=== PATIENT | female | born 1950 | race African-American/Black ===

== ENCOUNTER → 2017-07-28 | Outpatient (CLI) | payer OTHER | LOC: MRI 14:49 | DX: M47.26 Other spondylosis with radiculopathy, lumbar region (principal) ==

== ENCOUNTER → 2019-01-11 | Outpatient (CLI) | payer OTHER | LOC: RAD 03:07 | DX: Z12.31 Encounter for screening mammogram for malignant neoplasm of breast (principal) ==

== ENCOUNTER → 2019-01-13 | Outpatient (CLI) | payer OTHER | LOC: ULTRA 03:17 | DX: N60.01 Solitary cyst of right breast (principal) ==

== ENCOUNTER → 2019-05-24 | Outpatient (CLI) | payer OTHER ==
[~2019-05-24] VITALS: Ht 165.1 cm; Wt 74.4 kg
[~2019-05-24] MED LIST: AMLODIPINE BESY10 MG PO; CALCIUM 600 +1 EAC1 PO; MAGOX 400400 MG PO; POTASSIUM GLUCO99 M2 PO; VITAMINC500 PO; WOMEN'S DAILY1 EACH PO
--- NOTE | ~2019-05-24 | P ---
[facility] [place] [address] [address] PROCEDURE REPORT Name: YAZAN NELSON Room #: REG KEERTHI Kim#: [id number] Admission: 05/24/19 Attend Phys: Krzysztof Taylor Discharge: Date of : 46 Report #: [id number] THIS REPORT FOR: //name// CC: Gold Degroot DATE OF SERVICE: 05/24/2019 PROCEDURE PERFORMED: Colonoscopy with biopsies. HISTORY OF PRESENT ILLNESS: The patient is a 68-year-old female with a history of colon polyps 5 years ago. Also, family history of colon cancer in her brother. She is here for 5-year followup. She also has had weight loss of approximately 40 pounds in the last year; however, she has been under increased stress. Unfortunately, her last June and she had to move. She states her appetite has been fair. She denies any nausea or vomiting. No heartburn symptoms. No dysphagia. Bowel movements have been normal. Denies any blood in her stools or diarrhea. Plan is for colonoscopy. DESCRIPTION OF PROCEDURE: The risks and benefits of the procedure were explained to the patient, those risks including but not limited to bleeding, perforation and the risk of sedation. She understood these risks and gave informed consent. Sedation was given using propofol per anesthesia. Next, a digital rectal exam was initially performed, which was normal. Next, using a standard Olympus colonoscope, the scope was placed in the patient's anus and advanced under direct vision to the cecum. The overall prep was excellent. The cecum and ileocecal valve were normal in appearance. Ascending colon was normal and transverse colon were normal. In the descending colon, two sessile polyps were noted ranging from 4-5 mm, both removed with cold forceps. In the sigmoid colon, multiple small diverticula were noted. Also noted was a 4 mm sessile polyp also removed with cold forceps. The rectal mucosa was normal. On retroflexion, no abnormalities were noted. The scope was then withdrawn and the procedure terminated. The patient tolerated the procedure well. IMPRESSION: 1. Small colonic polyps. 2. Sigmoid diverticulosis. 3. Otherwise, normal colonoscopy. RECOMMENDATIONS: 1. Await biopsy results. 2. Repeat colonoscopy in 5 years. 3. If weight loss continues, consider further workup including possible CT scan of the abdomen and pelvis. [address] [address] PROCEDURE REPORT Name: AMANDACLEO DENIKHIL FOSTER Room #: REG KEERTHI Alvarez#: [id number] Admission: 05/24/19 Attend Phys: Krzysztof Taylor Discharge: Date of : 46 Report #: [id number] Thank you for allowing me to participate in her care. By: 0921 1435 Krzysztof Davis MD /nt
--- NOTE | 2019-05-25 19:06 | PATH ---
[facility] [address] [address] PATHOLOGY RPT PROCEDURE Name: KRYSTEN NELSON CRISTIAN Room #: REG KEERTHI Corbin.#: [id number] Admission: 05/24/19 Date of : 46 Discharge: Report #: [id number] Path Case #: [id number] [facility] Accession Number: [id number] . 01 Material submitted: . PART A: colon - BX OF POLYP DESCENDING COLON X2. Modifiers: descending PART B: colon - BX OF POLYP AT SIGMOID COLON. Modifiers: sigmoid . 01 Clinical history: . History of polyps, diverticulosis, colon polyps . 02 Diagnosis: A. Colon, descending, biopsy: - Adenomatous polyp, one. - Hyperplastic polyps, approximately five fragments. . B. Colon, sigmoid, biopsy: - Hyperplastic polyps, three. . (FRIDA:moni; 05/25/2019) QLM/05/25/2019 . 02 Electronically signed: . Ryan Barksdale MD, Pathologist NPI- [id number] . 01 Gross description: . A. The specimen is received in formalin, labeled "Krysten Nelson, BX of polyp descending colon x2", are few irregular fragments of rosas soft tissue measuring 0.7 x 0.4 x 0.2 cm in aggregate. Entirely submitted in A1. . B. The specimen is received in formalin, labeled "Krysten Nelson, BX of polyp at sigmoid colon", are three irregular fragments of rosas soft tissue measuring 0.4 x 0.3 x 0.1 cm in aggregate. Entirely submitted in B1. (SWS; 05/24/2019) SHS/SHS . 02 Pathologist provided ICD-10: D12.4, K63.5 . 02 CPT . 185277, 574481 Specimen Comment: A courtesy copy of this report has been sent to Specimen Comment: [phone], . Specimen Comment: Report sent to and Performed at: [address] [place] [address] PATHOLOGY RPT PROCEDURE Name: CLEO NELSONNIKHIL FOSTER Room #: REG CLMichelle Alvarez#: [id number] Admission: 05/24/19 Date of : 46 Discharge: Report #: [id number] Path Case #: [id number] [address], [place] [id number] MD Bridger Zazueta MD Phone: [phone] Performed at: [address] [id number] MD Rosalia Mauro MD Phone: [phone]
== END | disposition home or self-care (01) ==
LOC: GI 07:17
DX: Z12.11 Encounter for screening for malignant neoplasm of colon (principal); Z86.010 Personal history of colon polyps; Z80.0 Family history of malignant neoplasm of digestive organs; D12.4 Benign neoplasm of descending colon; K63.5 Polyp of colon; K57.30 Diverticulosis of large intestine without perforation or abscess without bleeding; I10 Essential (primary) hypertension; K21.9 Gastro-esophageal reflux disease without esophagitis; Z98.890 Other specified postprocedural states; Z87.891 Personal history of nicotine dependence; Z88.2 Allergy status to sulfonamides; Z79.899 Other long term (current) drug therapy
CPT/HCPCS: 62110; 62900

== ENCOUNTER → 2020-02-14 | Outpatient (CLI) | payer OTHER | LOC: BC 08:48 | DX: Z12.31 Encounter for screening mammogram for malignant neoplasm of breast (principal) ==

== ENCOUNTER 2020-07-25 21:14 | Emergency (ER) | payer OTHER ==
[~2020-07-25] VITALS: Ht 162.6 cm; Wt 69.8 kg
[2020-07-25] MEDS ORDERED: CYCLOBENZAPRINE5 MG PO (22:10)
[2020-07-25 22:42] VITALS: BP 138/70
== END 2020-07-25 22:45 | disposition home or self-care (01) ==
LOC: ER 21:14
DX: M54.2 Cervicalgia (principal); M54.9 Dorsalgia, unspecified; R51.9 Headache, unspecified; R11.0 Nausea; I10 Essential (primary) hypertension; K21.9 Gastro-esophageal reflux disease without esophagitis; Z79.899 Other long term (current) drug therapy; Z88.2 Allergy status to sulfonamides; Z91.013 Allergy to seafood; V49.9XXA Car occupant (driver) (passenger) injured in unspecified traffic accident, initial encounter; Y93.89 Activity, other specified; Y92.89 Other specified places as the place of occurrence of the external cause; Y99.8 Other external cause status

== ENCOUNTER → 2021-02-14 | Outpatient (CLI) | payer OTHER ==
[~2021-02-14] MED LIST changes: +CYCLOBENZAPRINE5 MG PO
== END ==
LOC: BC 09:49 → RAD 13:31
PROVIDERS: ATTEND Internal Medicine
DX: Z12.31 Encounter for screening mammogram for malignant neoplasm of breast (principal)

== ENCOUNTER 2021-07-14 12:36 | Emergency (ER) | payer OTHER ==
[~2021-07-14] VITALS: Ht 162.6 cm; Wt 69.8 kg
[2021-07-14 13:25] LABS: ABSOLUTE NEUTROPHILS 2.9 thou/uL (1.4-8.2); BASOPHILS 0.6 % (0.0-2.0); EOSINOPHILS 1.9 % (0.0-3.0); HEMATOCRIT 42.5 % (37.0-47.0); HEMOGLOBIN 14.4 gm/dL (12.0-15.0); LYMPHOCYTES 26.7 % (24.0-44.0); MCH 30.5 pg (26.0-34.0); MCHC 33.9 g/dL (28.0-37.0); MCV 89.9 fL (80.0-100.0); MONOCYTES 8.6 % (1.0-8.0); PLATELET COUNT 355 thou/uL (150-400); POLYS 62.2 % (36.0-66.0); RBC 4.72 mil/uL (4.20-5.00); RDW 15.5 % (10.5-14.5); WBC 4.7 thou/uL (4.0-11.0)
[2021-07-14 13:38] LABS: CALCIUM 9.5 mg/dL (8.5-10.1); POTASSIUM 4.2 mmol/L (3.5-5.1)
[2021-07-14 13:48] LABS: ALBUMIN 3.7 g/dL (3.4-5.0); TOTAL BILIRUBIN 0.4 mg/dL (0.2-1.0); TOTAL PROTEIN 7.9 g/dL (6.4-8.2)
[2021-07-14 14:20] VITALS: BP 134/80
--- NOTE | 2021-07-14 15:37 | EKG ---
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
== END 2021-07-14 14:20 | disposition home or self-care (01) ==
LOC: ER 12:36
PROVIDERS: Emergency Medicine
DX: J06.9 Acute upper respiratory infection, unspecified (principal); Z20.822 Contact with and (suspected) exposure to COVID-19; R07.89 Other chest pain; R06.02 Shortness of breath; R09.81 Nasal congestion; I10 Essential (primary) hypertension; K21.9 Gastro-esophageal reflux disease without esophagitis; Z79.899 Other long term (current) drug therapy; Z88.2 Allergy status to sulfonamides; Z91.013 Allergy to seafood

== ENCOUNTER 2021-07-16 17:49 | Emergency (ER) | payer OTHER ==
[~2021-07-16] VITALS: Ht 162.6 cm; Wt 70.3 kg
[2021-07-16 17:52] VITALS: BP 126/82
[2021-07-16] MEDS ORDERED: AUGMENTIN 875-1 EACH PO (18:26)
--- NOTE | 2021-07-17 07:22 | EKG ---
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 07/17/21 0722 1800 1800 Basil Smith MD, FACC /EPI
== END 2021-07-16 18:35 | disposition home or self-care (01) ==
LOC: ER 17:49
DX: R51.9 Headache, unspecified (principal); J34.89 Other specified disorders of nose and nasal sinuses; I10 Essential (primary) hypertension; K21.9 Gastro-esophageal reflux disease without esophagitis; F12.90 Cannabis use, unspecified, uncomplicated; Z98.890 Other specified postprocedural states; Z79.891 Long term (current) use of opiate analgesic; Z79.899 Other long term (current) drug therapy; Z88.2 Allergy status to sulfonamides; Z91.013 Allergy to seafood

== ENCOUNTER → 2021-10-01 | Outpatient (CLI) | payer OTHER ==
[~2021-10-01] MED LIST changes: +AUGMENTIN 875-1 EACH PO
== END ==
LOC: SJCVC 14:28
PROVIDERS: ATTEND Internal Medicine
DX: I34.0 Nonrheumatic mitral (valve) insufficiency (principal); R01.1 Cardiac murmur, unspecified; I10 Essential (primary) hypertension; E78.5 Hyperlipidemia, unspecified; F41.9 Anxiety disorder, unspecified; F32.9 Major depressive disorder, single episode, unspecified; Z88.5 Allergy status to narcotic agent; Z88.2 Allergy status to sulfonamides; Z91.013 Allergy to seafood; Z87.891 Personal history of nicotine dependence; Z72.89 Other problems related to lifestyle

== ENCOUNTER → 2021-10-20 | Outpatient (CLI) | payer OTHER | END | disposition home or self-care (01) | LOC: SJCVCIMAG 07:06 | PROVIDERS: ATTEND Internal Medicine | DX: I08.1 Rheumatic disorders of both mitral and tricuspid valves (principal); I10 Essential (primary) hypertension ==